=== PATIENT | female | born 1970 | race Caucasian/White ===

== ENCOUNTER → 2022-07-04 | Outpatient (CLI) | payer BC ==
[~2022-07-04] MED LIST: AMOXICILLIN AND1 TA2 PO; KETOROLAC10 MG PO; WELLBUTRIN SR150 M3 PO
[2022-07-04 15:01] LABS: BASO # 0.01 K/mm3 (0.02-0.10); EOS # 0.09 K/mm3 (0.04-0.40); EOS % 1.5 % (1.0-5.0); HEMOGLOBIN 12.1 g/dL (12.5-16.0); LYMPH# 1.68 K/mm3 (1.50-4.00); MEAN CELL VOLUME 91 fl (78-100); MEAN CORPUSCULAR HEMOGLOBIN 31 pg (27-31); MEAN CORPUSCULAR HGB CONC 34 g/dL (33-37); MONO # 0.59 K/mm3 (0.20-0.80); NEU # 3.74 K/mm3 (1.40-6.50); PLATELET COUNT 239 K/mm3 (130-400); RED BLOOD COUNT 3.95 M/mm3 (4.10-5.30); WHITE BLOOD COUNT 6.1 K/mm3 (4.8-10.8)
[2022-07-04 15:12] LABS: ALBUMIN 4.3 g/dL (3.5-5.0)
[2022-07-04 15:13] LABS: POTASSIUM 3.5 mmol/L (3.5-5.1)
[2022-07-04 15:14] LABS: CALCIUM 9.6 mg/dL (8.3-10.5)
[2022-07-04 15:15] LABS: TOTAL PROTEIN 7.7 g/dL (6.4-8.3)
[2022-07-04 15:17] LABS: TOTAL BILIRUBIN 0.4 mg/dL (0.2-1.2)
== END ==
LOC: LAB 14:45
PROVIDERS: Nurse Practitioner
DX: K21.9 Gastro-esophageal reflux disease without esophagitis (principal); R19.7 Diarrhea, unspecified; R10.30 Lower abdominal pain, unspecified